=== PATIENT | female | born 1965 | race Two or more races ===

== ENCOUNTER 2016-11-21 20:26 | Emergency (ER) | payer OTHER ==
[~2016-11-21] VITALS: Ht 165.1 cm; Wt 70.0 kg
[~2016-11-21 20:26] MED LIST: ALBU2.5V3 NEB; BENA20TA48 PO; HYD25 PO; HYDR-906 PO; PRED20TA PO
[2016-11-21 20:30] VITALS: Ht 165.1 cm; Wt 70.0 kg
[2016-11-21] MEDS ORDERED: ONDANSETRON 4 MG INJ IV STA (20:34)
[2016-11-21] MEDS ORDERED: morphine 4 MG/ML VIAL IV STA ×2 (20:34→21:56)
[2016-11-21] MEDS ORDERED: SOD CHLORIDE 0.9% 1,000 ML IV ONE (21:00)
--- NOTE | 2016-11-21 21:36 | RADRPT ---
PROCEDURE: CT abdomen and pelvis without contrast. CLINICAL INDICATION: Flank pain. Urolithiasis. TECHNIQUE: CT scan of the abdomen and pelvis without contrast was performed and is reconstructed a t 2.5 mm contiguous axial intervals from the dome of the diaphragm to the inferior pubic rami.. The patient was scanned without intravenous contrast. Sagittal and coronal reformatted images were obt ained from the axial source images. The calculated radiation dose measures 843 mGy centimeters. The CTDI measures 15 mGy. COMPARISON: None. FINDINGS: The lung bases are clear of any infiltrate or nodule. No effusion is seen. No gallstones are visualized. No splenic, adrenal or pancreatic abnormalities present. Kidneys are of normal size and contour. No hydronephrosis, calculus or masses seen. Ureters are o f normal course and caliber with no stone. No bladder mass or stone is present. Uterus is been shaneka baldomero. There is no adnexal mass. There is no aneurysm. No adenopathy is present. No bowel mass or obstruction is present. The appendix is normal. No phlegmon, ascites or pneumop eritoneum is visualized. The osseous structures are intact. IMPRESSION: No evidence of urolithiasis, obstructive uropathy, diverticulitis or appendicitis. Post hysterectomy. .Da Augustin MD, MD Date Time Electronically viewed and signed by .Da Augustin MD, on 11/21/2016 21:36 .A/
[2016-11-21 21:52] LABS: ALBUMIN 4.3 g/dl (3.3-4.9)
[2016-11-21] MEDS ORDERED: DICLOFENAC SODIUM 37.5 MG/ML VIAL IV STA (21:52)
[2016-11-21 21:53] LABS: POTASSIUM 3.9 mmol/L (3.5-5.1)
[2016-11-21 21:55] LABS: ALBUMIN/GLOBULIN RATIO 0.97; BILIRUBIN,INDIRECT 0.9 mg/dl (0-1.1); BILIRUBIN,TOTAL 0.9 mg/dl (0.2-1.3); CREATININE 0.64 mg/dl (0.44-1.00); TOTAL PROTEIN 8.7 g/dl (6.1-8.1)
[2016-11-21 21:56] LABS: CALCIUM 9.3 mg/dl (8.4-10.2)
[2016-11-21] MEDS ORDERED: DIAZEPAM 5 MG/ML SYG IV ONE (22:00)
[2016-11-21 22:01] LABS: BASOPHIL # 0.1 10^3/ul (0.0-0.1); BASOPHILS % 0.6 % (0.0-2.0); EOSINOPHILS # 0.3 10^3/ul (0.0-0.5); EOSINOPHILS % 3.2 % (0.0-7.0); HEMATOCRIT 39.5 % (37.0-47.0); HEMOGLOBIN 13.3 g/dl (12.0-16.0); LYMPHOCYTES # 3.3 10^3/ul (0.8-2.9); LYMPHOCYTES % 34.2 % (15.0-51.0); MEAN CORPUSCULAR HEMOGLOBIN 26.6 pg (29.0-33.0); MEAN CORPUSCULAR HGB CONC 33.6 g/dl (32.0-37.0); MEAN CORPUSCULAR VOLUME 79.2 fl (82.0-101.0); MEAN PLATELET VOLUME 8.7 fl (7.4-10.4); MONOCYTE # 0.6 10^3/ul (0.3-0.9); MONOCYTES % 6.2 % (0.0-11.0); NEUTROPHIL # 5.4 10^3/ul (1.6-7.5); NEUTROPHILS % 55.8 % (39.0-77.0); PLATELET COUNT 310 10^3/UL (140-440); RED BLOOD COUNT 4.98 10^6/ul (4.20-5.40); RED CELL DISTRIBUTION WIDTH 19.7 % (11.5-14.5); UNCORRECTED WBC 9.6 10^3/ul (4.8-10.8); WHITE BLOOD COUNT 9.6 10^3/ul (4.8-10.8)
[2016-11-21 22:11] LABS: CONDITION 1; LH ANALYZER COMMENTS 1
[2016-11-21 22:14] LABS: ADD UMIC YES; URINE BILIRUBIN (Dip) NEGATIVE (NEGATIVE); URINE BLOOD (Dip) 1+ (NEGATIVE); URINE COLOR LT. YELLOW (YELLOW); URINE GLUCOSE (Dip) NEGATIVE (NEGATIVE); URINE KETONES (Dip) NEGATIVE (NEGATIVE); URINE LEUKOCYTE ESTERASE (Dip) TRACE (NEGATIVE); URINE NITRITE (Dip) NEGATIVE (NEGATIVE); URINE TOTAL PROTEIN (Dip) NEGATIVE (NEGATIVE); URINE UROBILINOGEN (Dip) 0.2 E.U./dL (0.1-1.0)
[2016-11-21 22:23] LABS: BACTERIA,URINE RARE; SQUAMOUS EPITHELIAL CELL,UR RARE; URINE RBCS 0-2 /HPF (0)
--- NOTE | 2016-11-21 23:03 | ERD ---
ER Documentation Chief Complaint Date/Time DATE: 11/21/16 TIME: 22:58 Chief Complaint R SIDE FLANK PAIN FOR PAST 2 DAYS HPI This 51-year-old female presents to the ER with severe right-sided flank pain for the last 2 days. She is not sure if anything makes it better or worse because is gotten worse with last 2 days and is so bad right now. She denies any specific trauma to the area. Denies history of kidney stones. States that it was in a bandlike sensation around to the anterior abdomen somewhat. She had a hysterectomy performed a few weeks ago with no complications until 2 days ago. She denies fevers or chills. Denies nausea and vomiting ROS All systems reviewed and are negative except as per history of present illness. Medications Home Meds Active Scripts Albuterol Sulfate* (Albuterol Sulfate* Neb) 0.083%-3 Ml Neb, 2.5 MG NEB Q4 Y for SHORTNESS OF BREATH, #30 EA Prov:VERITO MOREIRA PA-C 07/09/16 Prednisone* (Prednisone*) 20 Mg Tab, 40 MG PO DAILY for 4 Days, TAB Prov:VERITO MOREIRA PA-C 07/09/16 Hydrocodone/Acetaminophen ([place] 5-325 Tablet) 1 Each Tablet, 1 EACH PO Q8 for 7 Days, TAB Prov:BENITO POLLOCK DO 06/16/16 Reported Medications Hydrochlorothiazide* (Hydrochlorothiazide*) 25 Mg Tab, 25 MG PO DAILY, #30 TAB 06/16/16 Benazepril Hcl* (Benazepril Hcl*) 20 Mg Tablet, 20 MG PO DAILY, #30 TAB 06/16/16 Allergies Allergies: Coded Allergies: No Known Allergy (Verified , 05/30/14) PMhx/Soc History of Surgery: Yes (had hysterectomy 06/2016) Anesthesia Reaction: No Hx Neurological Disorder: No Hx Respiratory Disorders: Yes (hx asthma ; albuterol and dulera also has sleep apnea) Hx Cardiac Disorders: No Hx Psychiatric Problems: No Hx Miscellaneous Medical Probl: No Hx Alcohol Use: No Hx Substance Use: No Hx Tobacco Use: No Physical Exam Vitals Vital Signs Date Time Temp Pulse Resp B/P Pulse Ox O2 Delivery O2 Flow Rate FiO2 11/21/16 20:30 98.8 98 18 155/80 99 Physical Exam Const: [] Mild distress, clutching right side Head: Atraumatic Eyes: Normal Conjunctiva ENT: Normal External Ears, Nose and Mouth. Neck: Full range of motion..~ No meningismus. Resp: Clear to auscultation bilaterally Cardio: Regular rate and rhythm, no murmurs Abd: Soft, non tender, non distended. Normal bowel sounds Skin: No petechiae or rashes Back: No midline tenderness, muscle spasm right paraspinal muscles in his visit tenderness along that area. Ext: No cyanosis, or edema Neur: Awake and alert and oriented 3, Psych: Normal Mood and Affect Result Diagram: 11/21/16204411/21/162044 Results 24 hrs Laboratory Tests Test 11/21/16 20:45 11/21/16 22:00 Alanine Aminotransferase (ALT/SGPT) 37IU/L Albumin 4.3g/dl Albumin/Globulin Ratio 0.97 Alkaline Phosphatase 73IU/L Anion Gap 17 Aspartate Amino Transf (AST/SGOT) 43IU/L Basophils # 0.110^3/ul Basophils % 0.6% Blood Morphology Comment Blood Urea Nitrogen 12mg/dl Calcium Level 9.3mg/dl Carbon Dioxide Level 26mmol/L Chloride Level 102mmol/L Creatinine 0.64mg/dl Direct Bilirubin 0.00mg/dl Eosinophils # 0.310^3/ul Eosinophils % 3.2% Globulin 4.40g/dl Glucose Level 78mg/dl Hematocrit 39.5% Hemoglobin 13.3g/dl Indirect Bilirubin 0.9mg/dl Lipase 121U/L Lymphocytes # 3.310^3/ul Lymphocytes % 34.2% Mean Corpuscular Hemoglobin 26.6pg Mean Corpuscular Hemoglobin Concent 33.6g/dl Mean Corpuscular Volume 79.2fl Mean Platelet Volume 8.7fl Monocytes # 0.610^3/ul Monocytes % 6.2% Neutrophils # 5.410^3/ul Neutrophils % 55.8% Nucleated Red Blood Cells # 0.010^3/ul Nucleated Red Blood Cells % 0.0/100WBC Platelet Count 11543^3/UL Potassium Level 3.9mmol/L Red Blood Count 4.9810^6/ul Red Cell Distribution Width 19.7% Sodium Level 141mmol/L Total Bilirubin 0.9mg/dl Total Protein 8.7g/dl White Blood Count 9.610^3/ul Urine Bacteria RARE Urine Bilirubin NEGATIVE Urine Clarity CLEAR Urine Color LT. YELLOW Urine Glucose NEGATIVE% Urine Hemoglobin 1+ Urine Ketones NEGATIVE Urine Leukocyte Esterase TRACE Urine Microscopic RBC 0-2/HPF Urine Microscopic WBC 0-2/HPF Urine Nitrite NEGATIVE Urine Specific Vest <=1.005 Urine Squamous Epithelial Cells RARE Urine Total Protein NEGATIVE Urine Urobilinogen 0.2 E.U./dL Urine pH 7.0 Current Medications Medications (Trade) Dose Ordered Sig/Gina Route PRN Reason Start Time Stop Time Status Last Admin Dose Admin Sodium Chloride (NS) 1,000 ml @ 1,000 mls/hr Q1H ONCE IV 11/21/16 21:00 11/21/16 21:59 DC 11/21/16 20:48 Ondansetron HCl (Zofran Inj) 4 mg ONCE STAT IV 11/21/16 20:34 11/21/16 20:36 DC 11/21/16 20:48 Morphine Sulfate (morphine) 4 mg ONCE STAT IV 11/21/16 20:34 11/21/16 20:36 DC 11/21/16 20:48 Diazepam (Valium) 5 mg ONCE ONCE IV 11/21/16 22:00 11/21/16 22:02 DC 11/21/16 22:04 Diclofenac Sodium (Dyloject) 37.5 mg ONCE STAT IV 11/21/16 21:52 11/21/16 21:54 DC 11/21/16 22:04 Morphine Sulfate (morphine) 4 mg ONCE STAT IV 11/21/16 21:56 11/21/16 21:57 DC 11/21/16 22:04 Procedures/MDM Musculoskeletal back pain with muscle spasm. She had recent surgery initial presentation consistent possible kidney stone. Full abdominal workup was obtained. Patient was given IV normal saline, morphine, Valium, echo for neck. After this her pain was much better in full examination was easier performed. Appears to muscle spasm muscle skeletal pain. Patient was asymptomatic in the emergency room after these medications were given. CT abdomen and pelvis has no signs of surgical emergency or postop complications such as fluid collection or abscess. Dental laboratories are also normal limits. Admitted discharge her with Robaxin, [place], naproxen and primary care follow up in 2-[address] abdomen and pelvis interpretation: I see no acute process, no obstruction, no free air, no abnormal fat stranding, no fractures. Departure Diagnosis: Primary Impression: Spasm of back muscles Additional Impression: Acute abdominal pain Condition: Stable SURINDER PINTO DO Nov 21, 2016 23:03
[2016-11-21] MEDS ORDERED: METH500T PO (23:07)
[2016-11-21] MEDS ORDERED: HYDR-906 PO (23:07)
[2016-11-21] MEDS ORDERED: NAPR-688 PO (23:07)
[2016-11-21 23:15] VITALS: BP 120/75; PULSE 76; RESP 16; TEMP 98.9
== END 2016-11-21 23:36 | disposition home or self-care (01) ==
LOC: E/R 20:26
DX: M62.830 Muscle spasm of back (principal); R40.2142 Coma scale, eyes open, spontaneous, at arrival to emergency department; R40.2362 Coma scale, best motor response, obeys commands, at arrival to emergency department; R40.2252 Coma scale, best verbal response, oriented, at arrival to emergency department; R10.0 Acute abdomen; J45.909 Unspecified asthma, uncomplicated
CPT/HCPCS: 74176; 80053; 81001; 83690; 85025; J2270; J2405; J3360; J7030; Z7610; 36415; 81003; 96374; 96375; 96376

== ENCOUNTER 2017-12-30 02:17 | Emergency (ER) | END 2017-12-30 06:55 | disposition home or self-care (01) ==

== ENCOUNTER 2019-04-24 13:09 | Emergency (ER) | payer OTHER ==
[~2019-04-24] VITALS: Ht 160 cm; Wt 90.1 kg
[2019-04-24 13:09] VITALS: Ht 160 cm; Wt 90.1 kg
[~2019-04-24 13:09] MED LIST changes: +BENA20TA4 PO; -BENA20TA48 PO; +CYCL10TA7 PO; -HYD25 PO; +HYDR-4011 PO; -HYDR-906 PO; +HYDR25TA6 PO; +METH500T PO; +NAPR-688 PO; +NAPR-985 PO; +TRAM50TA2 PO
[2019-04-24] MEDS ORDERED: CEPH-443 PO (13:51)
[2019-04-24] MEDS ORDERED: ACET500C5 PO (13:51)
[2019-04-24] MEDS ORDERED: PHEN-538 PO (13:51)
--- NOTE | 2019-04-24 13:57 | ERD ---
ER Documentation Chief Complaint Chief Complaint dysuria x4 days w/ frequency and pelvic pain. no hematuria HPI 53-year-old female presents with dysuria for the last 4 days. Denies fevers, vomiting, abdominal pain except for mild suprapubic pain. Patient has a history of chronic neck pain with discectomies and fusions. Denies any bowel or bladder incontinence, new musculoskeletal complaints. ROS All systems reviewed and are negative except as per history of present illness. Medications Home Meds Active Scripts Acetaminophen* (Tylophen*) 500 Mg Capsule, 1 CAP PO Q6H PRN for PAIN AND OR ELEVATED TEMP, #15 CAP Prov:RACQUEL DELGADO MD 04/24/19 Phenazopyridine Hcl* (Pyridium*) 200 Mg Tab, 200 MG PO TID PRN for URINARY PAIN, #6 TAB Prov:RACQUEL DELGADO MD 04/24/19 Cephalexin* (Keflex*) 500 Mg Capsule, 500 MG PO QID for 5 Days, CAP Prov:RACQUEL DELGADO MD 04/24/19 Cyclobenzaprine Hcl* (Cyclobenzaprine Hcl*) 10 Mg Tablet, 10 MG PO QHS, #7 TAB Prov:CAROL CALDWELL-C 12/30/17 Naproxen* (Naprosyn*) 500 Mg Tablet, 500 MG PO BID PRN for PAIN AND/OR INFLAMMATION, #30 TAB Prov:CAROL CALDWELL-C 12/30/17 Tramadol HCl (Tramadol HCl) 50 Mg Tablet, 50 MG PO Q4 PRN for PAIN, #20 TAB Prov:CAROL CALDWELLC 12/30/17 Naproxen* (Naproxen*) 500 Mg Tablet, 500 MG PO BID PRN for PAIN, #20 TAB Prov:SURINDER PINTO DO 11/21/16 Hydrocodone/Acetaminophen ([place] 5-325 Tablet) 1 Each Tablet, 1 EACH PO Q6, #18 TAB Prov:SURINDER PINTO DO 11/21/16 Methocarbamol* (Robaxin*) 500 Mg Tab, 500 MG PO Q8, #22 TAB Prov:SURINDER PINTO DO 11/21/16 Albuterol Sulfate* (Albuterol Sulfate* Neb) 0.083%-3 Ml Neb, 2.5 MG NEB Q4 PRN for SHORTNESS OF BREATH, #30 EA Prov:VERITO MOREIRA PA-C 07/09/16 Prednisone* (Prednisone*) 20 Mg Tab, 40 MG PO DAILY for 4 Days, TAB Prov:VERITO MOREIRA PA-C 07/09/16 Hydrocodone/Acetaminophen ([place] 5-325 Tablet) 1 Each Tablet, 1 EACH PO Q8 for 7 Days, TAB Prov:BENITO POLLOCK DO 06/16/16 Reported Medications Hydrochlorothiazide* (Hydrochlorothiazide*) 25 Mg Tab, 25 MG PO DAILY, #30 TAB 06/16/16 Benazepril Hcl* (Benazepril Hcl*) 20 Mg Tablet, 20 MG PO DAILY, #30 TAB 06/16/16 Allergies Allergies: Coded Allergies: No Known Allergy (Verified , 12/30/17) PMhx/Soc History of Surgery: Yes (had hysterectomy 06/2016) Anesthesia Reaction: No Hx Neurological Disorder: No Hx Respiratory Disorders: Yes (hx asthma ; albuterol and dulera also has sleep apnea) Hx Cardiac Disorders: No Hx Psychiatric Problems: No Hx Miscellaneous Medical Probl: No Hx Alcohol Use: No Hx Substance Use: No Hx Tobacco Use: No FmHx Family History: No diabetes, No coronary disease, No other Physical Exam Vitals Vital Signs Date Temp Pulse Resp B/P (MAP) Pulse Ox O2 O2 Flow FiO2 Time Delivery Rate 04/24/19 98.5 85 16 176/104 98 13:09 (128) Physical Exam Const: No acute distress Head: Atraumatic Eyes: Normal Conjunctiva ENT: Normal External Ears, Nose and Mouth. Neck: Full range of motion. No meningismus. Resp: Clear to auscultation bilaterally Cardio: Regular rate and rhythm, no murmurs Abd: Soft, non tender, non distended. Normal bowel sounds Skin: No petechiae or rashes Back: No midline or flank tenderness Ext: No cyanosis, or edema Neur: Awake and alert Psych: Normal Mood and Affect Results 24 hrs Laboratory Tests Test 04/24/19 13:25 Urine Color DOUG Urine Clarity CLEAR Urine pH 7.0 Urine Specific [place] 1.000 Urine Ketones NEGATIVE mg/dL Urine Nitrite POSITIVE mg/dL Urine Bilirubin NEGATIVE mg/dL Urine Urobilinogen NEGATIVE mg/dL Urine Leukocyte Esterase NEGATIVE Yulia/ul Urine Microscopic RBC 0 /HPF Urine Microscopic WBC 1 /HPF Urine Bacteria FEW /HPF Urine Hemoglobin 2+ mg/dL Urine Glucose NEGATIVE mg/dL Urine Total Protein NEGATIVE mg/dl Current Medications Medications Dose Sig/Gina Start Time Status Last (Trade) Ordered Route PRN Stop Time Admin Dose Reason Admin 650 mg ONCE ONCE 04/24/19 04/24/19 Acetaminophen PO 14:00 04/24/19 13:53 (Tylenol 14:01 Tab) Cephalexin 500 mg ONCE ONCE 04/24/19 04/24/19 (Keflex) PO 14:00 04/24/19 13:53 14:01 Procedures/MDM Shows nitrites, hemoglobin and few white blood cells. Patient given Keflex and Tylenol and Pyridium. Patient presents with symptoms of dysuria, with signs of uncomplicated cystitis without signs or symptoms suggest SIRS criteria, sepsis, concerning abdominal pain, additional concerning signs or symptoms. Will treat with Keflex, Pyridium, Tylenol, fluids, primary care follow-up and return precautions. The patient was stable with no new complaints during the ER course. Clinically, there is no current evidence to suggest meningitis, sepsis, acute abdomen, pneumonia, stroke, acute coronary syndrome, pulmonary embolism, aortic dissection or any other emergent condition appearing to require further evaluation or hospitalization. Patient counseled regarding my diagnostic impression and care plan. Prior to discharge all questions answered. Pt agrees with treatment plan and understands strict return precautions. Pt is instructed to follow up with primary care provider within 24-48 hours. Precautionary instructions provided including instructions to return to the ER if not improving or for any worsening or changing symptoms or concerns. Disclaimer: Inadvertent spelling and grammatical errors are likely due to EHR/dictation software use and do not reflect on the overall quality of patient care. Also, please note that the electronic time recorded on this note does not necessarily reflect the actual time of the patient encounter. Departure Diagnosis: Primary Impression: Dysuria Condition: Stable Patient Instructions: Dysuria, Urinary Tract Infections in Women Referrals: NO PRIMARY,CARE PHYSICIAN (PCP) Additional Instructions: lissette much agua . Cheque otro vez con henderson doctor primario en el proximo [place] or regresa para mas o nueva simptomas. RACQUEL DELGADO MD Apr 24, 2019 13:57
[2019-04-24] MEDS ORDERED: CEPHALEXIN 500 MG CAP PO ONE (14:00)
[2019-04-24] MEDS ORDERED: ACETAMINOPHEN 325 MG TAB PO ONE (14:00)
[2019-04-24 14:10] VITALS: BP 135/78; PULSE 82; RESP 18
== END 2019-04-24 14:10 | disposition home or self-care (01) ==
LOC: FTE 13:09
DX: R30.0 Dysuria (principal); J45.909 Unspecified asthma, uncomplicated
CPT/HCPCS: 81001; Z7502; Z7610; 99283